=== PATIENT | male | born 1945 | race Two or more races ===

== ENCOUNTER 2022-07-05 04:03 | Inpatient (IN) | payer MEDICAID, OTHER ==
[~2022-07-05] VITALS: Ht 160 cm; Wt 68.9 kg
[2022-07-05] MEDS ORDERED: NITROGLYCERIN 0.4 MG SL TAB SL ONE (05:00)
[2022-07-05] MEDS ORDERED: ASPirin 325 MG TAB PO ONE (05:00)
[2022-07-05 05:12] LABS: Basophils # (auto) 0.1 10 ^3/uL (0-0.2); Basophils % (auto) 0.8 % (0.0-2.0); Eosinophils # (auto) 0.1 10 ^3/uL (0-0.8); Eosinophils % (auto) 0.5 % (0.0-7.0); Hematocrit 45.4 % (41.0-53.0); Hemoglobin 15.3 g/dL (13.5-17.5); Lymphocytes # (auto) 1.3 10 ^3/uL (0.4-5.4); Mean Corpuscular Hemoglobin 31.7 pg (28.0-32.0); Mean Corpuscular Hgb Conc. 33.7 g/dL (32.0-36.0); Mean Corpuscular Volume 94.1 fL (80.0-100.0); Monocytes # (auto) 0.7 10 ^3/uL (0-1.3); Monocytes % (auto) 5.8 % (0.0-12.0); Neutrophils # (auto) 10.5 10 ^3/uL (1.6-8.6); Neutrophils % (auto) 82.9 % (37.0-80.0); Nucleated Red Blood Cells % 0.1 %; Red Blood Cells 4.82 10^6/uL (4.5-5.90); Red Cell Distribution Width 13.4 % (11.8-14.3); White Blood Cell 12.6 10^3/uL (4.4-10.8)
[2022-07-05] MEDS ORDERED: ONDANSETRON HCL 4 MG/2 ML VIAL IV ONE ×2 (05:30→07:30)
[2022-07-05] MEDS ORDERED: SODIUM CHLORIDE 0.9% 1,000 ML IV ONE (05:30)
[2022-07-05] MEDS ORDERED: fentaNYL CITRATE 100 MCG/2 ML VL IV ONE (05:30)
[2022-07-05 06:24] LABS: Albumin 3.9 g/dL (3.4-5.0); Calcium 8.8 mg/dL (8.5-10.1)
[2022-07-05 06:26] LABS: BUN/Creatinine Ratio 17.8; Bilirubin, Total 0.6 mg/dL (0.2-1.0); Total Protein 7.8 g/dL (6.4-8.2)
[2022-07-05 07:02] LABS: Urine Bacteria NONE SEEN /hpf (None Seen); Urine Blood Negative /uL (Negative); Urine WBC <1 /hpf (0 - 3)
[2022-07-05 07:10] LABS: Lactic Acid w/Reflex 3.8 mmol/L (0.4-2.0)
[2022-07-05] MEDS ORDERED: INSULIN LISPRO (HUMAN) 100 UNITS/ML ML SC ONE (10:15)
[2022-07-05] MEDS ORDERED: cefTRIAXone 1GM/50ML D5W 50 ML IV ONE (10:15)
[2022-07-05] MEDS ORDERED: ONDANSETRON HCL 4 MG/2 ML VIAL IV PRN (10:45)
[2022-07-05] MEDS ORDERED: MORPHINE SULFATE INJ 2 MG/ml SYRG IV ONE (10:45)
[2022-07-05] MEDS ORDERED: ACETAMINOPHEN 325 MG TAB PO PRN (12:45)
[2022-07-05] MEDS: SODIUM CHLORIDE 0.9% 1,000 ML IV SCH ×2 (13:25→21:59)
[2022-07-05] MEDS: HYDROcodone-ACET 5/325MG TAB PO PRN (17:29)
[2022-07-05] MEDS: ONDANSETRON HCL 4 MG/2 ML VIAL IV PRN (20:25)
[2022-07-05] MEDS: MORPHINE SULFATE INJ 2 MG/ml SYRG IV PRN (20:28)
[2022-07-05 22:14] VITALS: BP 165/87
[2022-07-06] MEDS: ONDANSETRON HCL 4 MG/2 ML VIAL IV PRN (01:56)
[2022-07-06] MEDS: MORPHINE SULFATE INJ 2 MG/ml SYRG IV PRN (01:59)
[2022-07-06] MEDS ORDERED: hydrALAZINE HCL 20 MG/ML VL IV ONE (02:45)
[2022-07-06 03:04] VITALS: BP 153/72
[2022-07-06 05:00] VITALS: BP 168/85
[2022-07-06 05:58] LABS: Basophils # (auto) 0 10 ^3/uL (0-0.2); Basophils % (auto) 0.1 % (0.0-2.0); Eosinophils # (auto) 0 10 ^3/uL (0-0.8); Hemoglobin 15.7 g/dL (13.5-17.5); Lymphocytes # (auto) 0.7 10 ^3/uL (0.4-5.4); Lymphocytes % (auto) 3.3 % (10.0-50.0); Mean Corpuscular Hemoglobin 31.4 pg (28.0-32.0); Mean Corpuscular Hgb Conc. 34.1 g/dL (32.0-36.0); Mean Corpuscular Volume 92.1 fL (80.0-100.0); Monocytes # (auto) 0.9 10 ^3/uL (0-1.3); Monocytes % (auto) 4.6 % (0.0-12.0); Neutrophils # (auto) 18.1 10 ^3/uL (1.6-8.6); Red Blood Cells 4.99 10^6/uL (4.5-5.90); Red Cell Distribution Width 13.6 % (11.8-14.3); White Blood Cell 19.7 10^3/uL (4.4-10.8)
[2022-07-06 06:04] LABS: Albumin 3.8 g/dL (3.4-5.0); BUN/Creatinine Ratio 10.1; Calcium 9.1 mg/dL (8.5-10.1)
[2022-07-06 06:12] LABS: Bilirubin, Total 1.5 mg/dL (0.2-1.0); Total Protein 7.9 g/dL (6.4-8.2)
[2022-07-06 09:00] VITALS: BP 157/74
[2022-07-06] MEDS: ENOXAPARIN SOD 40 MG/0.4 ML SYRINGE SC SCH (09:17)
[2022-07-06] MEDS: NIFEdipine ER 30 MG TAB PO SCH (09:17)
[2022-07-06] MEDS: HYDROcodone-ACET 5/325MG TAB PO PRN (11:15)
[2022-07-06] MEDS ORDERED: cefTRIAXone 1GM/50ML D5W 50 ML IV ONE (11:45)
[2022-07-06] MEDS ORDERED: AZITHROMYCIN 500MG/ 250ML 250 ML IV ONE (12:30)
[2022-07-06 13:00] VITALS: BP 154/85
[2022-07-06] MEDS ORDERED: DEXTROSE (50%) 50ML SYRG IV PRN (13:30)
[2022-07-06] MEDS: metroNIDAZOLE 500MG/100ML 100 ML IV SCH ×2 (13:32→21:28)
[2022-07-06] MEDS ORDERED: PANTOPRAZOLE 40 MG TAB PO ONE (13:45)
[2022-07-06 13:52] LABS: Cholesterol 95 mg/dL (< 200)
[2022-07-06 13:56] LABS: HDL Cholesterol 42 mg/dL (40-59); LDL Cholesterol 45 mg/dL (< 100); Triglycerides 159 mg/dL (< 150)
[2022-07-06 15:55] LABS: Urine Bacteria NONE SEEN /hpf (None Seen); Urine Blood 2+ /uL (Negative); Urine Mucus FEW (None Seen); Urine Specific Gravity 1.019 (1.001-1.035); Urine WBC 1 /hpf (0 - 3)
[2022-07-06 16:44] VITALS: BP 151/82
[2022-07-06] MEDS: ACCU-CHEK COMFORT CURVE STRIP VI SCH ×2 (16:54→21:19)
[2022-07-06] MEDS: InsuLIN REG 1unit/0.01ml Soln (100units/ml) SC SCH ×2 (16:59→21:16)
[2022-07-06] MEDS: DOCUSATE SOD 100 MG CAP PO PRN (18:31)
[2022-07-06] MEDS: SODIUM CHLORIDE 0.9% 1,000 ML IV SCH (21:28)
[2022-07-06 22:00] VITALS: BP 138/75
[2022-07-07 05:00] VITALS: BP 125/78
[2022-07-07] MEDS: ACCU-CHEK COMFORT CURVE STRIP VI SCH ×4 (06:05→22:00)
[2022-07-07] MEDS: metroNIDAZOLE 500MG/100ML 100 ML IV SCH ×3 (06:05→22:02)
[2022-07-07] MEDS: InsuLIN REG 1unit/0.01ml Soln (100units/ml) SC SCH ×4 (06:07→22:00)
[2022-07-07] MEDS: ASPirin 81 mg TAB PO SCH (08:38)
[2022-07-07] MEDS: DOCUSATE SOD 100 MG CAP PO PRN (08:38)
[2022-07-07] MEDS: cefTRIAXone 1GM/50ML D5W 50 ML IV SCH (08:39)
[2022-07-07] MEDS: ENOXAPARIN SOD 40 MG/0.4 ML SYRINGE SC SCH (08:39)
[2022-07-07] MEDS: NIFEdipine ER 30 MG TAB PO SCH (08:39)
[2022-07-07] MEDS: PANTOPRAZOLE 40 MG TAB PO SCH (08:39)
[2022-07-07 09:00] VITALS: BP 108/57
[2022-07-07] MEDS ORDERED: IOHEXOL 350 MG/ML 100ML IJ ONE (12:01)
[2022-07-07 13:00] VITALS: BP 120/69
[2022-07-07] MEDS ORDERED: ENOXAPARIN SOD 30 MG/0.3 ML SYRINGE SC ONE (14:00)
[2022-07-07] MEDS: SODIUM CHLORIDE 0.9% 1,000 ML IV SCH ×2 (14:45→16:49)
[2022-07-07] MEDS: HYDROcodone-ACET 5/325MG TAB PO PRN (16:24)
[2022-07-07 17:00] VITALS: BP 98/54
[2022-07-07 22:00] VITALS: BP 120/83
[2022-07-07] MEDS: ENOXAPARIN SOD 80 MG/0.8ML SYRINGE SC SCH (22:01)
[2022-07-07] MEDS: ATORVASTATIN 20 MG TAB PO SCH (22:01)
[2022-07-08] VITALS (7 sets, daily range): BP systolic 103–125; BP diastolic 61–74
[2022-07-08] MEDS: metroNIDAZOLE 500MG/100ML 100 ML IV SCH ×3 (06:14→22:22)
[2022-07-08] MEDS: ACCU-CHEK COMFORT CURVE STRIP VI SCH ×4 (06:36→22:19)
[2022-07-08] MEDS: InsuLIN REG 1unit/0.01ml Soln (100units/ml) SC SCH ×4 (06:40→22:20)
[2022-07-08] MEDS: cefTRIAXone 1GM/50ML D5W 50 ML IV SCH (09:39)
[2022-07-08] MEDS: PANTOPRAZOLE 40 MG TAB PO SCH (09:39)
[2022-07-08] MEDS: ASPirin 81 mg TAB PO SCH (09:39)
[2022-07-08] MEDS: ENOXAPARIN SOD 80 MG/0.8ML SYRINGE SC SCH ×2 (09:40→22:31)
[2022-07-08] MEDS: NIFEdipine ER 30 MG TAB PO SCH (09:40)
[2022-07-08] MEDS: DOCUSATE SOD 100 MG CAP PO PRN (10:44)
[2022-07-08 19:14] LABS: Basophils # (auto) 0 10 ^3/uL (0-0.2); Basophils % (auto) 0.5 % (0.0-2.0); Eosinophils # (auto) 0 10 ^3/uL (0-0.8); Eosinophils % (auto) 0.3 % (0.0-7.0); Hematocrit 41.8 % (41.0-53.0); Hemoglobin 14.2 g/dL (13.5-17.5); Lymphocytes # (auto) 0.5 10 ^3/uL (0.4-5.4); Lymphocytes % (auto) 5.6 % (10.0-50.0); Mean Corpuscular Hemoglobin 31.4 pg (28.0-32.0); Mean Corpuscular Volume 92.2 fL (80.0-100.0); Monocytes # (auto) 0.2 10 ^3/uL (0-1.3); Monocytes % (auto) 2.3 % (0.0-12.0); Neutrophils # (auto) 7.6 10 ^3/uL (1.6-8.6); Neutrophils % (auto) 91.3 % (37.0-80.0); Red Blood Cells 4.53 10^6/uL (4.5-5.90); Red Cell Distribution Width 13.5 % (11.8-14.3); White Blood Cell 8.4 10^3/uL (4.4-10.8)
[2022-07-08 19:43] LABS: BUN/Creatinine Ratio 20.2; Calcium 8.3 mg/dL (8.5-10.1); Potassium 3.6 mmol/L (3.5-5.1)
[2022-07-08] MEDS: HYDROcodone-ACET 5/325MG TAB PO PRN (22:21)
[2022-07-08] MEDS: ATORVASTATIN 20 MG TAB PO SCH (22:21)
[2022-07-09] MEDS: SODIUM CHLORIDE 0.9% 1,000 ML IV SCH ×2 (00:05→17:54)
[2022-07-09 05:00] VITALS: BP 118/62
[2022-07-09] MEDS: metroNIDAZOLE 500MG/100ML 100 ML IV SCH ×3 (06:41→23:03)
[2022-07-09] MEDS: ACCU-CHEK COMFORT CURVE STRIP VI SCH ×4 (06:41→23:03)
[2022-07-09] MEDS: InsuLIN REG 1unit/0.01ml Soln (100units/ml) SC SCH ×4 (06:52→23:04)
[2022-07-09 08:15] VITALS: BP 126/56
[2022-07-09] MEDS: cefTRIAXone 1GM/50ML D5W 50 ML IV SCH (08:58)
[2022-07-09 09:04] VITALS: BP 126/56
[2022-07-09] MEDS: ONDANSETRON HCL 4 MG/2 ML VIAL IV PRN (10:31)
[2022-07-09] MEDS: ASPirin 81 mg TAB PO SCH (10:31)
[2022-07-09] MEDS: HYDROcodone-ACET 5/325MG TAB PO PRN ×2 (10:31→23:05)
[2022-07-09] MEDS: NIFEdipine ER 30 MG TAB PO SCH (10:32)
[2022-07-09] MEDS: ENOXAPARIN SOD 80 MG/0.8ML SYRINGE SC SCH ×2 (10:32→23:03)
[2022-07-09] MEDS: PANTOPRAZOLE 40 MG TAB PO SCH (10:32)
[2022-07-09 17:10] VITALS: BP 122/74
[2022-07-09 20:00] VITALS: BP 127/71
[2022-07-09 22:00] VITALS: BP 127/71
[2022-07-09] MEDS: ATORVASTATIN 20 MG TAB PO SCH (23:03)
[2022-07-10] VITALS (7 sets, daily range): BP systolic 100–138; BP diastolic 49–76
[2022-07-10] MEDS: ACCU-CHEK COMFORT CURVE STRIP VI SCH ×4 (06:20→21:46)
[2022-07-10] MEDS: metroNIDAZOLE 500MG/100ML 100 ML IV SCH ×3 (06:20→21:45)
[2022-07-10] MEDS: InsuLIN REG 1unit/0.01ml Soln (100units/ml) SC SCH ×4 (06:26→21:47)
[2022-07-10] MEDS: SODIUM CHLORIDE 0.9% 1,000 ML IV SCH (09:46)
[2022-07-10] MEDS: ASPirin 81 mg TAB PO SCH (09:46)
[2022-07-10] MEDS: cefTRIAXone 1GM/50ML D5W 50 ML IV SCH (09:46)
[2022-07-10] MEDS: NIFEdipine ER 30 MG TAB PO SCH (09:47)
[2022-07-10] MEDS: ENOXAPARIN SOD 80 MG/0.8ML SYRINGE SC SCH ×2 (09:47→21:45)
[2022-07-10] MEDS: PANTOPRAZOLE 40 MG TAB PO SCH (09:47)
[2022-07-10] MEDS: ATORVASTATIN 20 MG TAB PO SCH (21:45)
[2022-07-10] MEDS: HYDROcodone-ACET 5/325MG TAB PO PRN (21:45)
[2022-07-11] MEDS: SODIUM CHLORIDE 0.9% 1,000 ML IV SCH ×2 (02:40→19:49)
[2022-07-11 05:00] VITALS: BP 105/42
[2022-07-11 05:47] LABS: Potassium 4.1 mmol/L (3.5-5.1)
[2022-07-11 05:58] LABS: Albumin 2.4 g/dL (3.4-5.0); BUN/Creatinine Ratio 17.6; Bilirubin, Total 0.7 mg/dL (0.2-1.0); Total Protein 6.4 g/dL (6.4-8.2)
[2022-07-11] MEDS: metroNIDAZOLE 500MG/100ML 100 ML IV SCH ×3 (06:14→21:54)
[2022-07-11 06:18] LABS: Basophils # (auto) 0 10 ^3/uL (0-0.2); Basophils % (auto) 0.2 % (0.0-2.0); Eosinophils # (auto) 0.1 10 ^3/uL (0-0.8); Eosinophils % (auto) 0.6 % (0.0-7.0); Hemoglobin 13.1 g/dL (13.5-17.5); Lymphocytes # (auto) 0.9 10 ^3/uL (0.4-5.4); Mean Corpuscular Hemoglobin 31.5 pg (28.0-32.0); Mean Corpuscular Hgb Conc. 33.6 g/dL (32.0-36.0); Mean Corpuscular Volume 93.8 fL (80.0-100.0); Monocytes # (auto) 1.2 10 ^3/uL (0-1.3); Neutrophils % (auto) 80.2 % (37.0-80.0); Red Blood Cells 4.16 10^6/uL (4.5-5.90); Red Cell Distribution Width 13.6 % (11.8-14.3); White Blood Cell 11.3 10^3/uL (4.4-10.8)
[2022-07-11] MEDS: InsuLIN REG 1unit/0.01ml Soln (100units/ml) SC SCH ×4 (06:18→21:56)
[2022-07-11] MEDS: ACCU-CHEK COMFORT CURVE STRIP VI SCH ×4 (06:18→21:54)
[2022-07-11 07:52] LABS: INR 1.09 (0.9-1.15); Partial Thromboplastin Time 32.2 sec (24.6-33.4)
[2022-07-11] MEDS ORDERED: SUCCINYLCHOLINE CHLORIDE 20 MG/ML 10ML VIAL IV ONE (08:15)
[2022-07-11] MEDS ORDERED: SODIUM CHLORIDE LOCK 10 ML ONE (08:19)
[2022-07-11] MEDS ORDERED: GLYCOPYRROLATE 0.2 MG/ML 1ML VIAL ONE (08:19)
[2022-07-11] MEDS ORDERED: ROCURONIUM 10MG/ML 10ML VIAL IV ONE (08:19)
[2022-07-11] MEDS ORDERED: ETOMIDATE (2MG/ML) 20ML VIAL IV ONE (08:19)
[2022-07-11] MEDS ORDERED: NEOSTIGMINE 1 MG/ML INJ (10mg/10ML VIAL) ONE (08:19)
[2022-07-11] MEDS ORDERED: fentaNYL CITRATE 100 MCG/2 ML VL ONE ×2 (08:19→10:18)
[2022-07-11] MEDS ORDERED: MIDAZOLAM HCL 2MG/2ML 2ml VIAL (1mg/ml) ONE (08:19)
[2022-07-11] MEDS ORDERED: ONDANSETRON HCL 4 MG/2 ML VIAL ONE (08:19)
[2022-07-11] MEDS ORDERED: BUPIVACAINE W/ EPINEPH 0.5% INJ 50ML MDV IJ ONE (08:45)
[2022-07-11 09:00] VITALS: BP 113/67
[2022-07-11] MEDS ORDERED: ceFAZolin 1GM/50ML 100 ML IV ONE (09:20)
[2022-07-11] MEDS ORDERED: METOCLOPRAMIDE HCL 5MG/ml INJ 2ml VIAL IV PRN (09:30)
[2022-07-11] MEDS ORDERED: MORPHINE SULFATE 4 MG/ML SYR/VIAL IV PRN (09:30)
[2022-07-11] MEDS ORDERED: HYDROmorphone HCL 2 MG/ML VL/or syr IV PRN ×2 (09:30)
[2022-07-11] MEDS ORDERED: ACCU-CHEK COMFORT CURVE STRIP VI ONE (09:30)
[2022-07-11] MEDS: ASPirin 81 mg TAB PO SCH (10:00)
[2022-07-11] MEDS: PANTOPRAZOLE 40 MG TAB PO SCH (10:00)
[2022-07-11] MEDS: ENOXAPARIN SOD 80 MG/0.8ML SYRINGE SC SCH ×2 (10:00→21:54)
[2022-07-11] MEDS: NIFEdipine ER 30 MG TAB PO SCH (10:00)
[2022-07-11] MEDS ORDERED: ceFAZolin 1GM VL ONE (11:23)
[2022-07-11] MEDS ORDERED: HYDROmorphone HCL 2 MG/ML VL/or syr ONE (12:32)
[2022-07-11 13:30] VITALS: BP 138/81
[2022-07-11] MEDS: MORPHINE SULFATE INJ 2 MG/ml SYRG IV PRN ×2 (14:04→19:51)
[2022-07-11] MEDS: cefTRIAXone 1GM/50ML D5W 50 ML IV SCH (16:29)
[2022-07-11 17:00] VITALS: BP 132/75
[2022-07-11 20:00] VITALS: BP 130/80
[2022-07-11] MEDS: HYDROcodone-ACET 5/325MG TAB PO PRN (21:40)
[2022-07-11] MEDS: ATORVASTATIN 20 MG TAB PO SCH (21:54)
[2022-07-11 22:00] VITALS: BP 130/80
[2022-07-12] VITALS (7 sets, daily range): BP systolic 126–145; BP diastolic 73–85
[2022-07-12] MEDS: MORPHINE SULFATE INJ 2 MG/ml SYRG IV PRN ×2 (05:19→11:42)
[2022-07-12] MEDS: metroNIDAZOLE 500MG/100ML 100 ML IV SCH ×3 (05:35→22:25)
[2022-07-12] MEDS: InsuLIN REG 1unit/0.01ml Soln (100units/ml) SC SCH ×4 (06:35→22:00)
[2022-07-12] MEDS: ACCU-CHEK COMFORT CURVE STRIP VI SCH ×4 (06:35→22:25)
[2022-07-12] MEDS: NIFEdipine ER 30 MG TAB PO SCH (10:00)
[2022-07-12] MEDS: PANTOPRAZOLE 40 MG TAB PO SCH (10:00)
[2022-07-12] MEDS: ASPirin 81 mg TAB PO SCH (10:00)
[2022-07-12] MEDS: ENOXAPARIN SOD 80 MG/0.8ML SYRINGE SC SCH ×2 (10:21→22:25)
[2022-07-12] MEDS: cefTRIAXone 1GM/50ML D5W 50 ML IV SCH (10:21)
[2022-07-12] MEDS: SODIUM CHLORIDE 0.9% 1,000 ML IV SCH (11:25)
[2022-07-12] MEDS: ONDANSETRON HCL 4 MG/2 ML VIAL IV PRN (11:41)
[2022-07-12 19:10] LABS: Albumin 2.3 g/dL (3.4-5.0); Calcium 8.1 mg/dL (8.5-10.1); Potassium 3.7 mmol/L (3.5-5.1)
[2022-07-12 19:12] LABS: BUN/Creatinine Ratio 18.5
[2022-07-12 19:15] LABS: Bilirubin, Total 0.5 mg/dL (0.2-1.0); Total Protein 6.7 g/dL (6.4-8.2)
[2022-07-12] MEDS: ATORVASTATIN 20 MG TAB PO SCH (22:25)
[2022-07-13] MEDS: SODIUM CHLORIDE 0.9% 1,000 ML IV SCH (04:38)
[2022-07-13 04:50] VITALS: BP 156/82
[2022-07-13] MEDS: metroNIDAZOLE 500MG/100ML 100 ML IV SCH ×3 (05:31→22:14)
[2022-07-13] MEDS: ACCU-CHEK COMFORT CURVE STRIP VI SCH ×4 (06:18→22:17)
[2022-07-13] MEDS: InsuLIN REG 1unit/0.01ml Soln (100units/ml) SC SCH ×4 (06:19→22:23)
[2022-07-13 09:00] VITALS: BP 135/83
[2022-07-13] MEDS: ASPirin 81 mg TAB PO SCH (09:16)
[2022-07-13] MEDS: cefTRIAXone 1GM/50ML D5W 50 ML IV SCH (09:16)
[2022-07-13] MEDS: ENOXAPARIN SOD 80 MG/0.8ML SYRINGE SC SCH (09:16)
[2022-07-13] MEDS: PANTOPRAZOLE 40 MG TAB PO SCH (09:17)
[2022-07-13] MEDS: NIFEdipine ER 30 MG TAB PO SCH (09:17)
[2022-07-13 13:00] VITALS: BP 147/84
[2022-07-13 14:23] LABS: Albumin 2.3 g/dL (3.4-5.0); BUN/Creatinine Ratio 29.3; Calcium 8.3 mg/dL (8.5-10.1); Potassium 3.8 mmol/L (3.5-5.1)
[2022-07-13 14:26] LABS: Bilirubin, Total 0.4 mg/dL (0.2-1.0); Total Protein 6.8 g/dL (6.4-8.2)
[2022-07-13 14:36] LABS: Basophils # (auto) 0 10 ^3/uL (0-0.2); Basophils % (auto) 0.3 % (0.0-2.0); Eosinophils # (auto) 0 10 ^3/uL (0-0.8); Eosinophils % (auto) 0.1 % (0.0-7.0); Hematocrit 38.3 % (41.0-53.0); Hemoglobin 12.7 g/dL (13.5-17.5); Lymphocytes % (auto) 8.8 % (10.0-50.0); Mean Corpuscular Hemoglobin 31.4 pg (28.0-32.0); Mean Corpuscular Hgb Conc. 33.3 g/dL (32.0-36.0); Mean Corpuscular Volume 94.5 fL (80.0-100.0); Monocytes % (auto) 8.7 % (0.0-12.0); Neutrophils # (auto) 9.4 10 ^3/uL (1.6-8.6); Neutrophils % (auto) 82.1 % (37.0-80.0); Red Blood Cells 4.05 10^6/uL (4.5-5.90); Red Cell Distribution Width 13.6 % (11.8-14.3); White Blood Cell 11.4 10^3/uL (4.4-10.8)
[2022-07-13 16:28] VITALS: BP 141/80
[2022-07-13 22:00] VITALS: BP 144/75
[2022-07-13] MEDS: APIXABAN 5 MG TAB PO SCH (22:16)
[2022-07-13] MEDS: ATORVASTATIN 20 MG TAB PO SCH (22:16)
[2022-07-14] VITALS (7 sets, daily range): BP systolic 141–169; BP diastolic 78–90
[2022-07-14] MEDS: SODIUM CHLORIDE 0.9% 1,000 ML IV SCH ×2 (04:47→13:25)
[2022-07-14] MEDS: InsuLIN REG 1unit/0.01ml Soln (100units/ml) SC SCH ×4 (05:58→21:54)
[2022-07-14] MEDS: metroNIDAZOLE 500MG/100ML 100 ML IV SCH ×3 (05:58→21:45)
[2022-07-14] MEDS: ACCU-CHEK COMFORT CURVE STRIP VI SCH ×4 (05:58→21:42)
[2022-07-14] MEDS: hydrALAZINE HCL 10 MG TAB PO PRN (06:00)
[2022-07-14] MEDS: cefTRIAXone 1GM/50ML D5W 50 ML IV SCH (10:33)
[2022-07-14] MEDS: ASPirin 81 mg TAB PO SCH (10:34)
[2022-07-14] MEDS: APIXABAN 5 MG TAB PO SCH ×2 (10:34→21:42)
[2022-07-14] MEDS: NIFEdipine ER 30 MG TAB PO SCH (10:35)
[2022-07-14] MEDS: PANTOPRAZOLE 40 MG TAB PO SCH (10:35)
[2022-07-14] MEDS: ATORVASTATIN 20 MG TAB PO SCH (21:41)
[2022-07-15 05:00] VITALS: BP 156/80
[2022-07-15] MEDS: SODIUM CHLORIDE 0.9% 1,000 ML IV SCH ×2 (05:35→22:45)
[2022-07-15] MEDS: metroNIDAZOLE 500MG/100ML 100 ML IV SCH ×3 (05:35→22:19)
[2022-07-15] MEDS: InsuLIN REG 1unit/0.01ml Soln (100units/ml) SC SCH ×4 (06:36→22:00)
[2022-07-15] MEDS: ACCU-CHEK COMFORT CURVE STRIP VI SCH ×4 (07:00→22:19)
[2022-07-15 08:00] VITALS: BP_SYST 141; BP_SYST 159; BP_DIAS 76; BP_DIAS 78
[2022-07-15] MEDS: cefTRIAXone 1GM/50ML D5W 50 ML IV SCH (08:34)
[2022-07-15] MEDS: ASPirin 81 mg TAB PO SCH (10:04)
[2022-07-15] MEDS: NIFEdipine ER 30 MG TAB PO SCH (10:05)
[2022-07-15] MEDS: APIXABAN 5 MG TAB PO SCH ×2 (10:05→22:19)
[2022-07-15] MEDS: PANTOPRAZOLE 40 MG TAB PO SCH (10:06)
[2022-07-15 13:00] VITALS: BP 146/74
[2022-07-15 16:49] VITALS: BP 140/78
[2022-07-15 20:00] VITALS: BP 125/71
[2022-07-15 22:00] VITALS: BP 125/71
[2022-07-15] MEDS: ATORVASTATIN 20 MG TAB PO SCH (22:19)
[2022-07-16 05:00] VITALS: BP 136/100
[2022-07-16] MEDS: metroNIDAZOLE 500MG/100ML 100 ML IV SCH ×2 (05:26→13:42)
[2022-07-16 05:39] VITALS: BP 135/74
[2022-07-16] MEDS: InsuLIN REG 1unit/0.01ml Soln (100units/ml) SC SCH ×3 (06:28→13:13)
[2022-07-16] MEDS: ACCU-CHEK COMFORT CURVE STRIP VI SCH ×2 (06:31→11:30)
[2022-07-16 08:00] VITALS: BP 180/68
[2022-07-16 09:00] VITALS: BP 144/79
[2022-07-16] MEDS: hydrALAZINE HCL 10 MG TAB PO PRN (09:32)
[2022-07-16] MEDS: cefTRIAXone 1GM/50ML D5W 50 ML IV SCH (09:34)
[2022-07-16] MEDS: ASPirin 81 mg TAB PO SCH (09:34)
[2022-07-16] MEDS: APIXABAN 5 MG TAB PO SCH (09:35)
[2022-07-16] MEDS: PANTOPRAZOLE 40 MG TAB PO SCH (09:36)
[2022-07-16] MEDS: NIFEdipine ER 30 MG TAB PO SCH (09:36)
[2022-07-16] MEDS ORDERED: METR500T PO (11:30)
[2022-07-16] MEDS ORDERED: PANT40T PO (11:30)
[2022-07-16] MEDS ORDERED: HYDR-4902 PO (11:30)
[2022-07-16] MEDS ORDERED: LEVO500T31 PO (11:30)
[2022-07-16] MEDS ORDERED: APIX5TAB PO (11:34)
[2022-07-16 12:29] VITALS: BP 144/79
[2022-07-16 12:53] VITALS: BP 123/68
== END 2022-07-16 14:30 | disposition home or self-care (01) | DRG 710 ==
LOC: ER 04:03 → TELE 12:46 → TELE-WESTW 21:20
PROVIDERS: ADMIT Internal Medicine; ATTEND Family Medicine
PROC: 0FJ44ZZ Inspection of Gallbladder, Percutaneous Endoscopic Approach (ICD-10-PCS; 2022-07-11)
PROC: 0W9G00Z Drainage of Peritoneal Cavity with Drainage Device, Open Approach (ICD-10-PCS; 2022-07-11)
PROC: 0DNW4ZZ Release Peritoneum, Percutaneous Endoscopic Approach (ICD-10-PCS; 2022-07-11)
PROC: 0FT40ZZ Resection of Gallbladder, Open Approach (ICD-10-PCS; principal; 2022-07-11 09:35)
DX: A41.9 Sepsis, unspecified organism (principal); K65.1 Peritoneal abscess; I82.431 Acute embolism and thrombosis of right popliteal vein; J18.9 Pneumonia, unspecified organism; K82.A2 Perforation of gallbladder in cholecystitis; K80.00 Calculus of gallbladder with acute cholecystitis without obstruction; R10.9 Unspecified abdominal pain; E11.65 Type 2 diabetes mellitus with hyperglycemia; K52.9 Noninfective gastroenteritis and colitis, unspecified; I44.0 Atrioventricular block, first degree; K82.A1 Gangrene of gallbladder in cholecystitis; Z20.822 Contact with and (suspected) exposure to COVID-19; I10 Essential (primary) hypertension; R79.89 Other specified abnormal findings of blood chemistry; E66.9 Obesity, unspecified; E78.5 Hyperlipidemia, unspecified; K76.0 Fatty (change of) liver, not elsewhere classified; K82.8 Other specified diseases of gallbladder; Z83.3 Family history of diabetes mellitus; Z68.26 Body mass index [BMI] 26.0-26.9, adult
CPT/HCPCS: 36415; 71045; 71250; 71275; 74176; 76705; 78226; 80048; 80053; 80061; 81001; 82962; 83036; 83605; 83690; 83880; 84443; 84484; 85025; 85379; 85610; 85730; 87040; 87205; 93005; 93306; 93970; 96361; 96365; 96375; 96376; G0378; J0330; J0690; J0696; J1815; J2250; J2405; J3490